=== PATIENT | male | born 1970 | race Caucasian/White ===

== ENCOUNTER 2017-10-28 03:51 | Emergency (ER) | payer MEDICARE ==
[2017-10-28 03:51] VITALS: BMI 27.2
[2017-10-28 04:05] VITALS: O2SAT 98
--- NOTE | 2017-10-28 04:16 | ED PDOC ---
HPI: Chest Pain Time Seen by Provider: 10/28/17 03:58 Chief Complaint (Nursing): Chest Pain Chief Complaint (Provider): chest pain, back pain History Per: Patient History/Exam Limitations: no limitations Onset/Duration Of Symptoms: Days (10 days) Current Symptoms Are (Timing): Constant Quality: Tightness Associated Symptoms: denies: Nausea Exacerbating Factors: Turning, Movement Alleviating Factors: None Additional Complaint(s): 47 yr old M presents to ED with complaint of chest pain and worsening acute on chronic back pain x 1 day. PMHx includes HTN, hypercholesterolemia, chronic back pain, Denies nausea, palpitations, SOB, sweating, headache, dizziness or weakness. Denies urinary or fecal incontinence. His back pain is severe, 10/10, sharp. Associated symptoms are left arm pain. Denies one sided weakness. Reports hx spinal surgery, right shoulder repair, right foot surgery. Movement exacerbates the back pain, nothing alleviates his pain. Denies hx or current spinal injury. PMD: Dr. Fernandez Pain management: Dr. Hernandez Past Medical History Vital Signs: Last Vital Signs Temp 98.2 F 10/28/17 05:44 Pulse 78 10/28/17 05:44 Resp 14 10/28/17 05:44 BP 111/60 10/28/17 05:44 Pulse Ox 98 10/28/17 05:44 - Medical History PMH: Arthritis Denies: Chronic Kidney Disease - Surgical History Other surgeries: right shoulder, righn foot, back - Family History Family History: States: No Known Family Hx - Living Arrangements Living Arrangements: With Family - Social History Current smoker - smoking cessation education provided: Yes (<1/2 pack per da) Alcohol: None Drugs: Denies - Home Medications Home Medications: Ambulatory Orders Medication Instructions Recorded Naproxen [Naprosyn] 500 mg PO BID #20 tablet 08/04/15 - Allergies Allergies/Adverse Reactions: Allergies Allergy/AdvReac Type Severity Reaction Status Date / Time No Known Allergies Allergy Verified 10/28/17 04:02 JUAN Risk Score for UA/NSTEMI - JUAN Risk Score Age > 64: NO Known CAD (Stenosis greater than 50%): NO Aspirin use in past 7 days: NO Severe Angina: NO EKG ST changes greater than 0.5mm: NO JUAN Score: 0 Risk %: 5% Curb-65 Severity Score - CURB-65 Severity Score Confusion: No Bun >19mg/dl (>7mmol/L): No Respiratory Rate greater than/equal to 30: No Systolic BP <90 or Diastolic BP less than/equal 60mmHg: No Age >64: No Curb-65 Score: 0 Percentage 30-day mortality: 0.6% Wells Criteria for PE - Wells Criteria for Pulmonary Embolism Clinical Signs and Symptoms of DVT: No P.E is #1 Diagnosis, or Equally Likely: No Heart Rate >100: Yes Immobilization at least 3 days;Surgery previous 4 weeks: No Previous, objectively diagnosed PE or DVT: No Hemoptysis: No Malignancy w/treatment within 6 months, or palliative: No Total Score: 1.5 Review of Systems Constitutional: Negative for: Fever, Chills Eyes: Negative for: Vision Change, Eyelid Inflammation ENT: Negative for: Nose Pain, Nose Discharge, Nose Congestion, Mouth Swelling, Throat Pain Cardiovascular: Positive for: Chest Pain. Negative for: Palpitations, Edema, Light Headedness Respiratory: Negative for: Cough, Shortness of Breath, Hemoptysis, Wheezing Gastrointestinal: Negative for: Nausea, Vomiting, Abdominal Pain, Diarrhea, Constipation Genitourinary Male: Negative for: Dysuria, Frequency, Incontinence Musculoskeletal: Positive for: Arm Pain (right arm). Negative for: Neck Pain, Shoulder Pain Skin: Negative for: Rash, Lesions Neurological: Negative for: Weakness, Numbness, Confusion, Altered Mental Status , Dizziness Psych: Negative for: Anxiety Physical Exam - Physical Exam Appears: Positive for: No Acute Distress Head Exam: Positive for: ATRAUMATIC, NORMOCEPHALIC Skin: Positive for: Normal Color, Warm, Dry Eye Exam: Positive for: EOMI, PERRL ENT: Negative for: Pharyngeal Erythema, Tonsillar Exudate Neck: Positive for: Painless ROM, Supple Cardiovascular/Chest: Positive for: Regular Rate, Rhythm. Negative for: Gallop , Murmur Respiratory: Positive for: Normal Breath Sounds. Negative for: Crackles, Rales , Rhonchi Pulses-Carotid (L): 2+ Pulses-Carotid (R): 2+ Pulses-Radial (L): 2+ Pulses-Radial (R): 2+ Gastrointestinal/Abdominal: Positive for: Bowel Sounds (present), Soft. Negative for: Tenderness, Distended Back: Negative for: L CVA Tenderness, R CVA Tenderness Extremity: Positive for: Normal ROM. 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 Negative for: Motor/Sensory Deficits - Laboratory Results Result Diagrams: 10/28/17 04:50 10/28/17 04:50 - ECG O2 Sat by Pulse Oximetry: 98 - Progress ED Course And Treament: EKG: NSR, no ST-T changes -CBC w/diff: WBC 11.9, rest wnl -BMP: wnl -troponin: negative -Tylenol 975mg PO once, Toradol 30g IV, Cyclobenzaprine 10mg, -Patient stable, vital signs wnl. Disposition - Clinical Impression Clinical Impression: Atypical chest pain, Chronic back pain - Disposition Referrals: Danis Hernandez MD [Staff Provider] - Condition: STABLE Instructions: Chest Pain, Chronic Pain (DC) Forms: [facility] (Kiswahili)
[2017-10-28] MEDS ORDERED: Lidocaine 5% Patch TD STA (04:27)
[2017-10-28] MEDS ORDERED: Lidocaine 5% Patch TD ONE (04:40)
[2017-10-28 05:18] LABS: BLOOD UREA NITROGEN 10 mg/dl (9-20); CALCIUM 9.5 mg/dL (8.4-10.2); GFR AFRICAN-AMERICAN > 60; GFR NON-AFRICAN AMERICAN > 60
[2017-10-28 06:00] LABS: BASO # 0.1 K/uL (0.0-0.2); BASO % 0.8 % (0.0-2.0); EOS # 0.6 K/uL (0.0-0.7); EOS % 4.7 % (0.0-4.0); HEMOGLOBIN 14.6 g/dL (12.0-18.0); LYMPH % 24.9 % (20.0-40.0); MEAN CELL VOLUME 92.4 fl (80.0-94.0); MEAN CORPUSCULAR HEMOGLOBIN 31.7 pg (27.0-31.0); MEAN CORPUSCULAR HGB CONC 34.4 g/dL (33.0-37.0); MEAN PLATELET VOLUME 10.2 fl (7.2-11.7); MONO # 1.3 K/uL (0.0-0.8); MONO % 10.8 % (0.0-10.0); NEUT % 58.8 % (50.0-75.0); NRBC % 0.1 % (0.0-0.0); RBC 4.59 Mil/uL (4.40-5.90); WHITE BLOOD COUNT 11.9 K/uL (4.8-10.8)
[2017-10-28 06:23] VITALS: BP 111/60; PULSE 78; RESP 14; TEMP 98.2
--- NOTE | 2017-10-28 07:44 | RAD ---
HISTORY: chest pain COMPARISON: Chest radiographs 04/21/2015. FINDINGS: LUNGS: No active pulmonary disease. PLEURA: No significant pleural effusion identified, no pneumothorax apparent. CARDIOVASCULAR: Normal. OSSEOUS STRUCTURES: No significant abnormalities. VISUALIZED UPPER ABDOMEN: Normal. OTHER FINDINGS: None. IMPRESSION: No interval acute cardiopulmonary disease appreciated.
--- NOTE | 2017-10-28 07:52 | CARD ---
APPROVED REPORT EKG Measurement Heart [id number] <Conclusion> Normal sinus rhythm Normal ECG
== END 2017-10-28 06:34 | disposition home or self-care (01) ==
LOC: H.ER 03:51
DX: R07.89 Other chest pain (principal); M54.9 Dorsalgia, unspecified
CPT/HCPCS: 71045; 80048; 84484; 85025; 93005; 96374; 99284; J1885